=== PATIENT | female | born 1990 ===

== ENCOUNTER 2017-08-11 20:09 | Emergency (ER) | payer OTHER ==
[2017-08-11 21:16] VITALS: BMI 21.0
[2017-08-11 21:20] VITALS: RESP 18; TEMP 97.8
[2017-08-11] MEDS ORDERED: cefTRIAXone (Rocephin) 250 mg Inj IVPB STA (21:40)
[2017-08-11 21:47] LABS: PH,URINE 6.5 (4.7-8.0); URINE BILIRUBIN NEGATIVE (NEGATIVE); URINE BLOOD NEGATIVE (NEGATIVE); URINE GLUCOSE (UA) NEGATIVE (NEGATIVE); URINE KETONE 15 mg/dL (NEGATIVE); URINE LEUKOCYTE ESTERASE MODERATE Leu/uL (NEGATIVE); URINE PROTEIN NEGATIVE mg/dL (<30 mg/dL); URINE UROBILINOGEN 0.2 E.U./dL (<1 E.U./dL)
--- NOTE | 2017-08-11 21:48 | ED PDOC ---
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 Hx of herpes. State she has multiple sexual partners, all male, she does not use protection and does not know their STI status. States she is not actively in herpes outbreak, and takes valtrex from time to time. takes no other medications. pain does not radiate anywhere. No back pain. states last month her period was extremely heavy, every day, soaking 1-2 pads per day, and was 30 days straight until now. denies fevers/chills, headache, chest pain, shortness of breath, Nausea, vomiting, diarrhea, lower extremity pain swelling. Admits to dysuria/ freq/urg and discharge. meds: denies allergies: denies surgeries: denies social: social drinker, denies illicit drug use, denies smoking famhx: diabetes (Gurinder Yeboah) Past Medical History - Infectious Disease Hx of Infectious Diseases: None - Tetanus Immunization Tetanus Immunization: Unknown - Cardiac Hx Cardiac Disorders: Yes (Igsuh-Uldbxpkvk-Dwgyz (WPW) syndrome) - Pulmonary Hx Respiratory Disorders: No - Neurological Hx Neurological Disorder: No - HEENT Hx HEENT Disorder: No - Renal Hx Renal Disorder: No - Endocrine/Metabolic Hx Endocrine Disorders: No - Hematological/Oncological Hx Blood Disorders: No - Integumentary Hx Dermatological Disorder: No - Musculoskeletal/Rheumatological Hx Musculoskeletal Disorders: No Hx Falls: No - Gastrointestinal Hx Gastrointestinal Disorders: No - Genitourinary/Gynecological Hx Genitourinary Disorders: No - Psychiatric Hx Depression: No Hx Substance Use: No - Surgical History Hx Cholecystectomy: Yes - Anesthesia Hx Anesthesia: Yes Hx Anesthesia Reactions: No - Suicidal Assessment Feels Threatened In Home Enviroment: No Family/Social History - Physician Review Nursing Documentation Reviewed: Yes Family/Social History: No Known Family HX Smoking Status: Never Smoked Hx Alcohol Use: Yes (SOCIALLY) Hx Substance Use: No Allergies/Home Meds Allergies/Adverse Reactions: Allergies No Known Allergies Allergy (Verified 08/11/17 21:17) Review of Systems - Review of Systems Constitutional: absent: Fatigue, Weight Change Eyes: absent: Vision Changes, Photophobia ENT: absent: Hearing Changes Respiratory: absent: SOB, Cough Cardiovascular: absent: Chest Pain, Palpitations Gastrointestinal: Abdominal Pain. absent: Diarrhea, Nausea, Vomiting, Appetite Changes, Hematochezia, Hematemesis, Anorexia, Food Intolerance Genitourinary Female: Dysuria, Frequency, Urine Output Changes, Vaginal Discharge. absent: Hematuria, Vaginal Bleeding Musculoskeletal: absent: Arthralgias, Back Pain Skin: absent: Rash Neurological: absent: Headache, Dizziness Endocrine: absent: Diaphoresis, Polyuria Hemo/Lymphatic: absent: Adenopathy Psychiatric: absent: Anxiety Physical Exam Temperature: Afebrile Blood Pressure: Hypertensive Pulse: Regular Respiratory Rate: Normal Appearance: Positive for: Well-Appearing, Non-Toxic Mental Status: Positive for: Alert and Oriented X 3 - Systems Exam Head: Present: Atraumatic Pupils: Present: PERRL Extroacular Muscles: Present: EOMI Conjunctiva: Present: Normal Mouth: Present: Moist Mucous Membranes. No: Dry Pharnyx: Present: Normal. No: ERYTHEMA Neck: Present: Normal Range of Motion. No: Meningeal Signs Respiratory/Chest: Present: Clear to Auscultation, Good Air Exchange. No: Respiratory Distress, Accessory Muscle Use Cardiovascular: Present: Regular Rate and Rhythm, Normal S1, S2 Abdomen: Present: Tenderness (in the suprapubic region), Normal Bowel Sounds. No: Distention, Peritoneal Signs, Rebound, Guarding, McBurney's Point Tender, Rovsing's Sign Present, Hernias, Feeding Tubes, Ostomy Tubes, Mass/Organomegaly , Scars Genitourinary/Pelvic Exam: Present: Normal External Genitalia, Vaginal Discharge (mucopurulent discharge coming from cerical os ), Adenexal Tenderness (on right and left, negative chandelier sign), Cervical os Closed, Odor. No: Vaginal Bleeding, Vaginal Lesions, Adenexal Mass, Cervical Motion Tendernes, Other Back: Present: Normal Inspection. No: CVA Tenderness Upper Extremity: Present: Normal Inspection. No: Cyanosis, Edema Lower Extremity: Present: Normal Inspection. No: Edema Neurological: Present: GCS=15, CN II-XII Intact, Speech Normal Skin: Present: Warm Lymphatic: No: Cervical Adenopathy Psychiatric: Present: Alert, Oriented x 3 Vital Signs Temp Pulse Resp BP Pulse Ox 08/11/17 21:19 97.8 F 109 H 18 155/99 H 96 Medical Decision Making ED Course and Treatment: Patient Seen With Resident: In agreement with resident note which contains more details about the patient. Patient was seen and evaluated with resident. Came up with plan and treatment together. (Melissa Patiño) 08/11/17 21:50 POC preg positive CBC CMP Urinalysis Lipase Bhcg quantative type and screen pelvic US urine gc/ chl RPR HIV rapid Given 250IV Ceftriaxone and 1000mg of Azithro for PID prophylaxis w/ vaginal discharge DD: ectopic vs torsion vs PID vs abscess Dispo and reassess 08/11/17 22:57 Quantitative HCG ~9k pending transvaginal US pending type and screen patient does not desire 08/12/17 00:03 US shows intrauterine with small cyst on ovary undeterminable viability of ; no heartbeat seen or pole patient will be given OBGYN f/u as outpatient; patient has her own OBGYN but requests to see another one from our service as hers is booked full for the next few months patient should f/u with OBGYN within the week for repeat HCG as well as transvaginal US for viability no bleeding on exam today; patient has not menstruated in 5-6 weeks 08/12/17 00:05 (Gurinder Yeboah) - Lab Interpretations Lab Results: 08/11/17 22:21 08/11/17 22:21 Lab Results 08/11/17 22:21: Beta HCG, Quant 9168.40 H 08/11/17 22:21: Sodium 138, Chloride 105, Potassium 3.4 L, Carbon Dioxide 22, Anion Gap 14, BUN 9, Creatinine 0.6 L, Est GFR ( Amer) > 60, Est GFR (Non -Af Amer) > 60, Random Glucose 83, Calcium 9.3, Total Bilirubin 0.5, AST 18, ALT 25, Alkaline Phosphatase 60, Total Protein 7.0, Albumin 4.1, Globulin 2.9, Albumin/Globulin Ratio 1.4, Lipase 159 08/11/17 22:21: pO2 46, VBG pH 7.40, VBG pCO2 38.0 L, VBG HCO3 23.5, VBG Total CO2 24.7, VBG O2 Sat (Calc) 84.2 H, VBG Base Excess -1.1 L, VBG Potassium 3.4 L , Sodium 138.0, Chloride 106.0, Glucose 82, Lactate 1.0, FiO2 21.0, Venous Blood Potassium 3.4 L 08/11/17 22:21: WBC 9.6, RBC 3.94, Hgb 12.0, Hct 35.6 L, MCV 90.4, MCH 30.5, MCHC 33.7, RDW 12.0, Plt Count 228, MPV 11.6 H, Gran % 62.8, Lymph % (Auto) 31.6 , Colbert % (Auto) 4.8, Eos % (Auto) 0.6 L, Baso % (Auto) 0.2, Gran # 5.99, Lymph # 3.0, Colbert # 0.5, Eos # 0.1, Baso # 0.02 08/11/17 21:42: Urine Color Yellow, Urine Appearance Sl cloudy, Urine pH 6.5, Ur Specific Union 1.015, Urine Protein Negative, Urine Glucose (UA) Negative, Urine Ketones 15 H, Urine Blood Negative, Urine Nitrate Negative, Urine Bilirubin Negative, Urine Urobilinogen 0.2, Ur Leukocyte Esterase Moderate H, Urine RBC Negative, Urine WBC 5 - 10, Ur Epithelial Cells 4 - 5, Urine Bacteria Many, Urine HCG, Qual Positive - RAD Interpretation Radiology Orders: 08/11/17 21:35 OB TRANSVAGINAL [US] Stat - Medication Orders Current Medication Orders: Discontinued Medications Azithromycin (Zithromax) 1,000 mg PO STAT STA PRN Reason: Protocol Stop: 08/11/17 21:41 Last Admin: 08/11/17 22:24 Dose: 1,000 mg Ceftriaxone Sodium (Rocephin) 250 mg IVPB STAT STA PRN Reason: Protocol Stop: 08/11/17 21:41 Last Admin: 08/11/17 22:24 Dose: 250 mg eMAR Start Stop Document 08/11/17 22:24 OCS (Rec: 08/11/17 22:24 OCS [id number]) Intravenous Solution Start Date 08/11/17 Start Time 22:24 Disposition/Present on Arrival - Present on Arrival Any Indicators Present on Arrival: No History of DVT/PE: No History of Uncontrolled Diabetes: No Urinary Catheter: No History of Decub. Ulcer: No History Surgical Site Infection Following: None - Disposition Have Diagnosis and Disposition been Completed?: Yes Disposition Time: 00:06 Patient Plan: Discharge - Disposition Diagnosis: Disposition: HOME/ ROUTINE Patient Problems: Current Active Problems Problem Status Onset Acute Condition: FAIR Discharge Instructions (ExitCare): (ED) Additional Instructions: Please followup with OBGYN within the week for another ultrasound and B HCG testing If you begin to have vaginal bleeding, please come to the ER as this could be a sign of miscarriage It was a pleasure taking care of you Referrals: Rosalba Dimas [Primary Care Provider] - Follow up with primary Romaine Do MD [Medical Doctor] - Follow up with primary Forms: [employer] (Setswana)
[2017-08-11 21:55] LABS: URINE APPEARANCE SL CLOUDY (CLEAR); URINE COLOR YELLOW (YELLOW)
[2017-08-11 21:57] LABS: URINE BACTERIA MANY (NEG); URINE RBC NEGATIVE /hpf (0-2)
[2017-08-11 22:26] LABS: BASO # 0.02 K/mm3 (0.0-2.0); BASO % 0.2 % (0.0-3.0); EOS # 0.1 (0.0-0.7); EOS % 0.6 % (1.5-5.0); GRAN # 5.99 (1.4-6.5); GRAN % 62.8 % (50.0-68.0); HEMATOCRIT 35.6 % (36.0-48.0); LYMPH % 31.6 % (22.0-35.0); MEAN CELL VOLUME 90.4 fl (80.0-105.0); MEAN CORPUSCULAR HEMOGLOBIN 30.5 pg (25.0-35.0); MEAN CORPUSCULAR HGB CONC 33.7 g/dl (31.0-37.0); MEAN PLATELET VOLUME 11.6 fl (7.0-11.0); MONO # 0.5 (0.1-0.6); MONO % 4.8 % (1.0-6.0); WHITE BLOOD COUNT 9.6 10^3/ul (4.5-11.0)
[2017-08-11 22:27] LABS: VENOUS BLOOD GAS BASE EXCESS -1.1 mmol/L (0.0-2.0)
[2017-08-11 22:37] LABS: ALB/GLOB RATIO 1.4 (1.1-1.8); ALKALINE PHOSPHATASE 60 U/L (38-126); ALT/SGPT 25 U/L (7-56); AST/SGOT 18 U/L (14-36); BILIRUBIN,TOTAL 0.5 mg/dL (0.2-1.3); BLOOD UREA NITROGEN 9 mg/dL (7-21); CALCIUM 9.3 mg/dL (8.4-10.5); CARBON DIOXIDE 22 mmol/L (21-33); CHLORIDE 105 mmol/L (98-107); GFR AFRICAN-AMERICAN > 60; GLUCOSE,RANDOM 83 mg/dL (70-110); LIPASE 159 U/L (23-300); POTASSIUM 3.4 mmol/L (3.6-5.0); SODIUM 138 mmol/L (132-148)
--- NOTE | 2017-08-11 23:57 | US ---
EXAM: US First Trimester, Transabdominal CLINICAL HISTORY: 26 years old, female; Pain; complicated by abdominal or pelvic pain; Lower; First trimester; Gestational age or lmp: Unknown; TECHNIQUE: Real-time transabdominal obstetrical ultrasound of the maternal pelvis and a first trimester with image documentation. COMPARISON: No relevant prior studies available. FINDINGS: Gestation: Gestational sac. Yolk sac. No pole. Mean sac diameter of 0.84 cm, out of range. Uterus/cervix: No subchorionic hemorrhage. No cervical dilatation or effacement. Ovaries: RIGHT ovary: 2.1 x 1.6 x 2.3 cm anechoic lesion. LEFT ovary: Normal. No adnexal masses. Free fluid: No significant free fluid. IMPRESSION: 1. Intrauterine , of uncertain viability. Recommend followup. 2. RIGHT ovarian cyst. EXAM: US , Transvaginal CLINICAL HISTORY: 26 years old, female; Pain; complicated by abdominal or pelvic pain; Lower; First trimester; Gestational age or lmp: Unknown; TECHNIQUE: Real-time transvaginal obstetrical ultrasound of the maternal pelvis and a first trimester with image documentation. Transvaginal imaging was used for better evaluation of the fetus and adnexa. COMPARISON: No relevant prior studies available. FINDINGS: Gestation: Gestational sac. Yolk sac. No pole. Mean sac diameter of 0.84 cm, out of range. Uterus/cervix: No subchorionic hemorrhage. No cervical dilatation or effacement. Ovaries: RIGHT ovary: 2.1 x 1.6 x 2.3 cm anechoic lesion. LEFT ovary: Normal. No adnexal masses. Free fluid: No significant free fluid.
[2017-08-12 01:43] VITALS: BP 145/89; PULSE 91; O2SAT 98
== END 2017-08-12 00:27 | disposition home or self-care (01) ==
LOC: ED 20:09
DX: O26.899 Other specified pregnancy related conditions, unspecified trimester (principal); R10.9 Unspecified abdominal pain
CPT/HCPCS: 76817; 80053; 81001; 82803; 83690; 84702; 84703; 85025; 86592; 86703; 86850; 86900; 87086; 87491; 87591; 96374; 99283; J0696

== ENCOUNTER 2017-09-13 18:13 | Emergency (ER) | payer OTHER ==
[2017-09-13 18:15] VITALS: BMI 21.0
[2017-09-13 19:10] VITALS: RESP 18; TEMP 98.8; O2SAT 100
--- NOTE | 2017-09-13 19:45 | ED PDOC ---
Arrival/HPI - General Chief Complaint: GI Problem Time Seen by Provider: 09/13/17 19:26 Historian: Patient - History of Present Illness Narrative History of Present Illness (Text): 09/13/17 19:39 Pt. presents to the Emergency department ~ 10 weeks with complaining of intermittent episodes of nausea especially in the morning.Pt. states earlier today she felt slightly dizzy as well and slightly faint which she attributes to her poor diet.Pt. states she has felt this way on previous occasions during her .Also with slight headache.No neck or back pain.No chest pain or sob.No abdominal pain.No fever or chills.No urinary complaints.States she feels better currently.Pt. w/o any care yet. Past Medical History - Provider Review Nursing Documentation Reviewed: Yes - Travel History Have you recently traveled outside [place] w/in the past 3 mons?: No - Infectious Disease Hx of Infectious Diseases: None - Tetanus Immunization Tetanus Immunization: Unknown - Cardiac Hx Cardiac Disorders: Yes (Ewsix-Fgcacfqnq-Amhrm (WPW) syndrome) - Pulmonary Hx Respiratory Disorders: No - Neurological Hx Neurological Disorder: No - HEENT Hx HEENT Disorder: No - Renal Hx Renal Disorder: No - Endocrine/Metabolic Hx Endocrine Disorders: No - Hematological/Oncological Hx Blood Disorders: No - Integumentary Hx Dermatological Disorder: No - Musculoskeletal/Rheumatological Hx Musculoskeletal Disorders: No - Gastrointestinal Hx Gastrointestinal Disorders: No - Genitourinary/Gynecological Hx Genitourinary Disorders: No - Psychiatric Hx Psychophysiologic Disorder: No Hx Substance Use: No - Surgical History Hx Cholecystectomy: Yes - Anesthesia Hx Anesthesia: Yes Hx Anesthesia Reactions: No - Suicidal Assessment Feels Threatened In Home Enviroment: No Family/Social History - Physician Review Nursing Documentation Reviewed: Yes Family/Social History: No Known Family HX Smoking Status: Never Smoked Hx Alcohol Use: No Hx Substance Use: No Allergies/Home Meds Allergies/Adverse Reactions: Allergies No Known Allergies Allergy (Verified 09/13/17 19:10) Review of Systems - Review of Systems Constitutional: Normal Eyes: Normal ENT: Normal Respiratory: Normal Cardiovascular: Normal Gastrointestinal: Nausea Genitourinary Female: Normal Musculoskeletal: Normal Skin: Normal Neurological: Normal Endocrine: Normal Hemo/Lymphatic: Normal Psychiatric: Normal Physical Exam Vital Signs Temp Pulse Resp BP Pulse Ox 09/13/17 19:04 98.8 F 91 H 18 118/78 100 Temperature: Afebrile Blood Pressure: Normal Pulse: Regular Respiratory Rate: Normal Appearance: Positive for: Well-Appearing, Non-Toxic, Comfortable Pain Distress: None Mental Status: Positive for: Alert and Oriented X 3 - Systems Exam Head: Present: Atraumatic, Normocephalic Pupils: Present: PERRL Extroacular Muscles: Present: EOMI Conjunctiva: Present: Normal Ears: Present: NORMAL TM Mouth: Present: Moist Mucous Membranes Pharnyx: Present: Normal Neck: Present: Normal Range of Motion Respiratory/Chest: Present: Clear to Auscultation, Good Air Exchange. No: Respiratory Distress, Accessory Muscle Use Cardiovascular: Present: Regular Rate and Rhythm, Normal S1, S2. No: Murmurs Abdomen: Present: Normal Bowel Sounds. No: Tenderness, Distention, Peritoneal Signs Back: Present: Normal Inspection Upper Extremity: Present: Normal Inspection. No: Cyanosis, Edema Lower Extremity: Present: Normal Inspection. No: Edema Neurological: Present: GCS=15, CN II-XII Intact, Speech Normal, Motor Func Grossly Intact, Normal Sensory Function Skin: Present: Warm, Dry, Normal Color. No: Rashes Psychiatric: Present: Alert, Oriented x 3, Normal Insight, Normal Concentration Medical Decision Making ED Course and Treatment: 09/13/17 19:46 Diff. diagnoses: Hyperemesis gravidum/viral syndrome/hypoglycemia 09/13/17 22:01 Reviewed EKG, NSR at [address]-segment elevations or depressions, no T-wave inversions, normal intervals. - Lab Interpretations Lab Results: 09/13/17 20:00 09/13/17 20:00 Lab Results 09/13/17 20:00: WBC 8.3, RBC 3.89, Hgb 11.9 L, Hct 35.4 L, MCV 91.0, MCH 30.6, MCHC 33.6, RDW 12.9, Plt Count 217, MPV 11.4 H 09/13/17 20:00: Sodium 136, Potassium 4.0, Chloride 105, Carbon Dioxide 22, Anion Gap 13, BUN 5 L, Creatinine 0.5 L, Est GFR ( Amer) > 60, Est GFR ( Non-Af Amer) > 60, Random Glucose 84, Calcium 9.5, Total Bilirubin 0.5, AST 20, ALT 24, Alkaline Phosphatase 62, Lactate Dehydrogenase 345, Total Creatine Kinase 25 L, Troponin I < 0.01 D, Total Protein 7.3, Albumin 4.1, Globulin 3.1 , Albumin/Globulin Ratio 1.3 - Medication Orders Current Medication Orders: Dextrose/Sodium Chloride (Dextrose 5%/0.45% Ns 1000 Ml) 1,000 mls @ 100 mls/hr IV .Q10H OUSMANE Discontinued Medications Sodium Chloride (Sodium Chloride 0.9%) 1,000 mls @ 999 mls/hr IV .Q1H1M STA Stop: 09/13/17 20:48 Last Admin: 09/13/17 20:13 Dose: 999 mls/hr eMAR Start Stop Document 09/13/17 20:13 JODaphne (Rec: 09/13/17 20:13 [facility] [id number]) Intravenous Solution Start Date 09/13/17 Start Time 20:13 End Date 09/13/17 End time 21:13 Total Infusion Time 60 Disposition/Present on Arrival - Present on Arrival Any Indicators Present on Arrival: No History of DVT/PE: No History of Uncontrolled Diabetes: No Urinary Catheter: No History of Decub. 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 PRN Reason: Nausea/Vomiting Referrals: Rosalba Dimas [Primary Care Provider] - Follow up with primary Forms: [employer] (Bangladeshi)
[2017-09-13] MEDS ORDERED: Sodium Chloride 0.9% 1,000 ML IV STA (19:48)
[2017-09-13 20:12] LABS: HEMATOCRIT 35.4 % (36.0-48.0); MEAN CORPUSCULAR HEMOGLOBIN 30.6 pg (25.0-35.0); MEAN CORPUSCULAR HGB CONC 33.6 g/dl (31.0-37.0); MEAN PLATELET VOLUME 11.4 fl (7.0-11.0); RED CELL DISTRIBUTION WIDTH 12.9 % (11.5-14.5); WHITE BLOOD COUNT 8.3 10^3/ul (4.5-11.0)
[2017-09-13 20:16] LABS: ALB/GLOB RATIO 1.3 (1.1-1.8); ALKALINE PHOSPHATASE 62 U/L (38-126); ALT/SGPT 24 U/L (7-56); AST/SGOT 20 U/L (14-36); BILIRUBIN,TOTAL 0.5 mg/dL (0.2-1.3); BLOOD UREA NITROGEN 5 mg/dL (7-21); CALCIUM 9.5 mg/dL (8.4-10.5); CARBON DIOXIDE 22 mmol/L (21-33); CHLORIDE 105 mmol/L (98-107); GFR AFRICAN-AMERICAN > 60; GLUCOSE,RANDOM 84 mg/dL (70-110); SODIUM 136 mmol/L (132-148); TOTAL PROTEIN 7.3 g/dL (5.8-8.3)
[2017-09-13 20:28] LABS: TROPONIN I < 0.01 ng/mL
[2017-09-13] MEDS ORDERED: Dextrose 5%/0.45% NS 1,000 ML IV SCH (20:40)
[2017-09-14 00:39] VITALS: BP 119/77; PULSE 82
--- NOTE | 2017-09-14 20:02 | CARD ---
APPROVED REPORT EKG Measurement Heart [id number] <Conclusion> Normal sinus rhythm Normal ECG
== END 2017-09-13 22:23 | disposition home or self-care (01) ==
LOC: ED 18:13
DX: O21.9 Vomiting of pregnancy, unspecified (principal); Z3A.10 10 weeks gestation of pregnancy
CPT/HCPCS: 80053; 82550; 83615; 84484; 85027; 93005; 96360; 99285; J7040; J7042

== ENCOUNTER 2018-01-18 14:26 | Emergency (ER) | payer OTHER ==
[2018-01-18 15:25] VITALS: RESP 16; TEMP 98.1; O2SAT 100
[2018-01-18 15:39] VITALS: BMI 25.9
--- NOTE | 2018-01-18 16:08 | ED PDOC ---
Arrival/HPI - General Chief Complaint: Lower Extremity Problem/Injury Time Seen by Provider: 01/18/18 14:37 Historian: Patient - History of Present Illness Narrative History of Present Illness (Text): 01/18/18 16:04 27yo female present with complaint of right ankle pain s/p trauma this morning. Patient states her leg became numb and when she stood up to stretch her legs, she fell landing on her right side. States she couldn't get appointment iwth her OB and she was referred to the Emergency department. She notes that she is currently 24weeks . Express concern over her baby. Notes that her leg/ankle pain is with ambulation. Denies hitting head, LOC, nausea, vomiting, dizziness, vaginal bleeding, vaginal discharge, any other complaint. Past Medical History - Provider Review Nursing Documentation Reviewed: Yes - Infectious Disease Hx of Infectious Diseases: None - Tetanus Immunization Tetanus Immunization: Unknown - Cardiac Hx Cardiac Disorders: Yes (Qitmi-Ehtbwrfjo-Issrr (WPW) syndrome) - Pulmonary Hx Respiratory Disorders: No - Neurological Hx Neurological Disorder: No - HEENT Hx HEENT Disorder: No - Renal Hx Renal Disorder: No - Endocrine/Metabolic Hx Endocrine Disorders: No - Hematological/Oncological Hx Blood Disorders: No - Integumentary Hx Dermatological Disorder: No - Musculoskeletal/Rheumatological Hx Musculoskeletal Disorders: No - Gastrointestinal Hx Gastrointestinal Disorders: No - Genitourinary/Gynecological Hx Genitourinary Disorders: No - Psychiatric Hx Psychophysiologic Disorder: No Hx Substance Use: No - Surgical History Hx Cholecystectomy: Yes - Anesthesia Hx Anesthesia: Yes Hx Anesthesia Reactions: No - Suicidal Assessment Feels Threatened In Home Enviroment: No Family/Social History - Physician Review Nursing Documentation Reviewed: Yes Family/Social History: Unknown Family HX Smoking Status: Never Smoked Hx Alcohol Use: No Hx Substance Use: No Allergies/Home Meds Allergies/Adverse Reactions: Allergies No Known Allergies Allergy (Verified 09/13/17 19:10) Home Medications: Home Meds Medication Instructions Recorded Confirmed No Known Home Med 01/18/18 01/18/18 Review of Systems - Physician Review All systems were reviewed & negative as marked: Yes - Review of Systems Constitutional: Normal Eyes: Normal ENT: Normal Respiratory: Normal Cardiovascular: Normal Gastrointestinal: Normal Genitourinary Female: Normal Musculoskeletal: Arthralgias (Right ankle pain) Skin: Normal Neurological: Normal Endocrine: Normal Hemo/Lymphatic: Normal Psychiatric: Normal Physical Exam Vital Signs Reviewed: Yes Vital Signs Temp Pulse Resp BP Pulse Ox 01/18/18 17:25 98.1 F 89 16 110/65 100 01/18/18 15:24 98.1 F 105 H 16 103/70 100 Temperature: Afebrile Blood Pressure: Normal Pulse: Tachycardic Respiratory Rate: Normal Appearance: Positive for: Well-Appearing, Non-Toxic, Comfortable Pain Distress: None Mental Status: Positive for: Alert and Oriented X 3 - Systems Exam Head: Present: Atraumatic, Normocephalic Pupils: Present: PERRL Extroacular Muscles: Present: EOMI Conjunctiva: Present: Normal Mouth: Present: Moist Mucous Membranes Neck: Present: Normal Range of Motion Respiratory/Chest: Present: Clear to Auscultation, Good Air Exchange. No: Respiratory Distress, Accessory Muscle Use Cardiovascular: Present: Regular Rate and Rhythm, Normal S1, S2. No: Murmurs Abdomen: No: Tenderness, Distention, Peritoneal Signs Back: Present: Normal Inspection Upper Extremity: Present: Normal Inspection. No: Cyanosis, Edema Lower Extremity: Present: NORMAL PULSES, Normal ROM, Tenderness (Lateral malleolus), Swelling (Mild swelling noted over the right lateral malleolus with overlaying tenderness), Neurovascularly Intact. No: Edema, Deformity Neurological: Present: GCS=15, CN II-XII Intact, Speech Normal Skin: Present: Warm, Dry, Normal Color. No: Rashes Psychiatric: Present: Alert, Oriented x 3, Normal Insight, Normal Concentration Medical Decision Making ED Course and Treatment: 01/18/18 16:11 PT present to Emergency department for stated history. She notes that she is currently 24weeks . She was offered ankle xray, but she declined xray at this time. Her pain was controlled in Emergency department with Tylenol 650mg. Ice applied. Mingo wrap will be applied to the area and she will be advised to keep ankle elevated and ice. 01/18/18 20:16 IMPRESSION: Single live intrauterine gestation of approximately 28 weeks 4 days. heart rate 1 5 5. Normal amniotic fluid volume. No placenta previa. Cervix closed. Breech presentation. Anterior placenta. EFW 1203 g. - RAD Interpretation Radiology Orders: 01/18/18 15:39 AGE [US] Stat - Medication Orders Current Medication Orders: Discontinued Medications Acetaminophen (Tylenol 325mg Tab) 650 mg PO STAT STA Stop: 01/18/18 16:04 Last Admin: 01/18/18 16:53 Dose: 650 mg MAR Pain/Vitals Document 01/18/18 16:53 OCS (Rec: 01/18/18 17:02 OCS [id number]) Pain Reassessment Is This A Pain ReAssessment? No Sleep Is patient sleeping during reassessment? No Presence of Pain Presence of Pain Yes Pain Scale Used Pain Scale Used Numeric Location Aggravating Factors ADL's Disposition/Present on Arrival - Present on Arrival Any Indicators Present on Arrival: No History of DVT/PE: No History of Uncontrolled Diabetes: No Urinary Catheter: No History of Decub. Ulcer: No History Surgical Site Infection Following: None - Disposition Have Diagnosis and Disposition been Completed?: Yes Diagnosis: Ankle sprain, Disposition: HOME/ ROUTINE Disposition Time: 17:10 Patient Plan: Discharge Condition: STABLE Discharge Instructions (ExitCare): Ankle Sprain Additional Instructions: Rest, ice, compress and elevate ankle follow up with your doctor Referrals: Rosalba Dimas [Primary Care Provider] - Follow up with primary Forms: [employer] (Guyanese), WORK NOTE
--- NOTE | 2018-01-18 16:59 | US ---
PROCEDURE: Limited obstetrical ultrasound examination HISTORY: abdomianl pain s/p trauma COMPARISON: 08/11/2017 TECHNIQUE: Transabdominal FINDINGS: Ultrasound examination demonstrates a single live intrauterine gestation in breech presentation. The heart rate is 155 beats per minute. Normal quantity of amniotic fluid is visualized. A normal anterior placenta is identified. There is no evidence of placenta previa. The cervix is closed and measures 4.4 cm in length. biometry demonstrates a age of 28 weeks 4 days. The HYUN by ultrasound is 04/08/2018. The EFW is 1203 g. anatomic evaluation was grossly limited at this time. The ovaries could not be visualized. No adnexal masses are seen. IMPRESSION: Single live intrauterine gestation of approximately 28 weeks 4 days. heart rate 1 5 5. Normal amniotic fluid volume. No placenta previa. Cervix closed. Breech presentation. Anterior placenta. EFW 1203 g.
[2018-01-18 17:27] VITALS: BP 110/65; PULSE 89
== END 2018-01-18 17:27 | disposition home or self-care (01) ==
LOC: ED 14:26
DX: O26.892 Other specified pregnancy related conditions, second trimester (principal); S93.401A Sprain of unspecified ligament of right ankle, initial encounter; W19.XXXA Unspecified fall, initial encounter; Z3A.24 24 weeks gestation of pregnancy